=== PATIENT | male | born 1995 | race Caucasian/White ===

== ENCOUNTER 2019-12-04 05:07 | Emergency (ER) | payer SELFPAY ==
[~2019-12-04] VITALS: Ht 180.3 cm; Wt 153.4 kg
[2019-12-04 05:10] VITALS: BP 163/119
[2019-12-04] MEDS ORDERED: NEOSPORIN OINT. PKT 1 PACKET ONE (05:29)
[2019-12-04] MEDS ORDERED: KETOROLAC 60 MG/2 ML IM ONE (05:30)
== END 2019-12-04 06:43 | disposition home or self-care (01) ==
LOC: ED 06:41
DX: S83.412A Sprain of medial collateral ligament of left knee, initial encounter (principal); W01.0XXA Fall on same level from slipping, tripping and stumbling without subsequent striking against object, initial encounter; Y93.89 Activity, other specified; Y92.410 Unspecified street and highway as the place of occurrence of the external cause; Y99.8 Other external cause status
CPT/HCPCS: 99283